=== PATIENT | male | born 1970 | race Asian ===

== ENCOUNTER 2019-01-17 15:11 | Emergency (ER) | payer MEDICARE, MEDICAID ==
[~2019-01-17] VITALS: Ht 170.2 cm; Wt 129.3 kg
[2019-01-17 15:12] VITALS: BP 115/78
[2019-01-17] MEDS ORDERED: LISINOPRIL2.5 MG ORAL (15:16)
--- NOTE | 2019-01-17 15:23 | Emergency Room Report ---
History of Present Illness General Chief Complaint: General Complaint Source: Patient, EMS Present Illness HPI 48-year-old male with a history of bipolar disorder on lithium, sertraline, clonazepam, as well as COPD not on home O2 and sleep apnea, sent from [address] [place] [address] because they were unable to arouse him for almost an hour today. This was called, and they reported patient was drowsy but arousable , he had no complaints, and now patient wants to go back to his facility before he misses dinner. He reports that he just been very strict sleepy and under a lot of stress after having an argument with significant other via the phone, and he did not want to be bothered so he was not responding to them. He reports that he is supposed to get a sleep apnea machine delivered to the facility, and since he has not gotten it he has not been sleeping well and has been more sleepy than usual as well as more irritable than usual especially after the argument with his significant other. He has no complaints at all, and just wants to go back to the facility. Allergies: Coded Allergies: No Known Allergies (Unverified , 01/17/19) Patient History Past Medical History: see triage record Reviewed Nursing Documentation: PMH: Agreed; PSxH: Agreed Nursing Documentation-PMH Hx Hypertension: Yes Hx Diabetes: Yes Review of Systems All Other Systems: negative except mentioned in HPI Physical Exam Vital Signs Date Time Temp Pulse Resp B/P (MAP) Pulse Ox O2 Delivery O2 Flow Rate FiO2 01/17/19 15:03 97.9 70 20 115/78 (90) 98 Room Air Sp02 EP Interpretation: reviewed, normal General Appearance: no apparent distress, alert, non-toxic Head: normocephalic Eyes: bilateral eye normal inspection, bilateral eye PERRL, bilateral eye EOMI ENT: normal ENT inspection, hearing grossly normal, normal pharynx, no angioedema, normal voice, moist mucus membranes Neck: normal inspection, full range of motion, supple, supple/symm/no masses Respiratory: chest non-tender, lungs clear, normal breath sounds, chest symmetrical, palpation of chest normal Cardiovascular #1: normal peripheral pulses, regular rate, rhythm, no edema Cardiovascular #2: 2+ radial (R), 2+ radial (L), 2+ dorsalis pedis (R), 2+ dorsalis pedis (L) Gastrointestinal: normal inspection, non tender, soft, no mass, no guarding, no rebound Rectal: deferred Genitourinary: normal inspection, no CVA tenderness Musculoskeletal: back normal, gait/station normal, normal range of motion, non- tender, no calf tenderness, Maria Fernanda's Sign negative Neurologic: alert, responsive, repair tech III-XII nml as tested, motor strength/tone normal, sensory intact, speech normal Psychiatric: judgement/insight normal, memory normal, mood/affect normal Skin: normal color, no rash, warm/dry, normal turgor Lymphatic: no adenopathy Medical Decision Making Diagnostic Impression: Primary Impression: Somnolence ER Course Patient is very well-appearing, has no complaints, is alert and oriented to person place situation time, ambulates with a stable gait, has a normal pupillary response, and has no complaints whatsoever. He is not at all drowsy here, and may be suffering from excessive daytime sleepiness due to his known history of obstructive sleep apnea and still awaiting his CPAP machine. However , I suspect today's episode was 2/2 patient being intentionally unarousable with the staff and not getting up on their request that he wake up, since he recollects the event and tells me he didn't want to get up. I have monitored him to ensure that there is no concern for acute opioid or benzodiazepine ingestion therefore I have monitored him without giving him any medications/ naloxone/any treatments of any kind, to ensure that he does not become acutely unresponsive. Patient's work-up is been unremarkable other than a leukocytosis with white blood cell count of 17,000, no bandemia, and patient's chest x-ray, urinalysis also unremarkable, do not suspect infection, patient is asked if he is on steroids, he reports no obvious oral steroid use but he is on Advair inhaled steroid, this may be the source of his leukocytosis. Case is medically cleared , I do not suspect any acute mental status changes, and he will be discharged. His monitoring period has been unremarkable, will dc back to transitional home. EKG Diagnostic Results EKG Time: 15:52 EP Interpretation: no stemi, qtc 459 Rate: normal Rhythm: NSR ST Segments: no acute changes ASA given to the pt in ED: No Chest X-Ray Diagnostic Results Chest X-Ray Diagnostic Results : Chest X-Ray Ordered: Yes # of Views/Limited/Complete: 1 View Indication: Other - AMS EP Interpretation: Yes Interpretation: no consolidation, no effusion, no pneumothorax, no acute cardiopulmonary disease Impression: No acute disease Electronically Signed by: Julio Garza MD Last Vital Signs Date Time Temp Pulse Resp B/P (MAP) Pulse Ox O2 Delivery O2 Flow Rate FiO2 01/17/19 15:03 97.9 70 20 115/78 (90) 98 Room Air Disposition: HOME, SELF-CARE Condition: Stable JULIO GARZA M.D Jan 17, 2019 15:23
[2019-01-17 16:07] LABS: BASOPHILS % (AUTO) 1.3 % (0.0-2.0); EOSINOPHILS % (AUTO) 4.8 % (0.0-3.0); HEMOGLOBIN 14.4 G/DL (14.2-18.0); LYMPHOCYTES % (AUTO) 30.1 % (20.0-45.0); MEAN CORPUSCULAR VOLUME 93 FL (80-99); MONOCYTES % (AUTO) 7.9 % (1.0-10.0); PLATELET COUNT 246 K/UL (150-450); RED BLOOD COUNT 4.39 M/UL (4.70-6.10); RED CELL DISTRIBUTION WIDTH 10.6 % (11.6-14.8); WHITE BLOOD COUNT 17.7 K/UL (4.8-10.8)
[2019-01-17 16:09] LABS: ANION GAP 7 mmol/L (5-15); BLOOD UREA NITROGEN 11 mg/dL (7-18); CALCIUM 8.6 MG/DL (8.5-10.1); CARBON DIOXIDE 28 MMOL/L (21-32); CHLORIDE 104 MMOL/L (98-107); CREATININE 1.2 MG/DL (0.55-1.30); POTASSIUM 4.3 MMOL/L (3.5-5.1); SODIUM 139 MMOL/L (136-145)
[2019-01-17 16:14] LABS: ALANINE AMINOTRANSFERASE 27 U/L (12-78); ALBUMIN 3.4 G/DL (3.4-5.0); ALKALINE PHOSPHATASE 66 U/L (46-116); ASPARTATE AMINO TRANSFERASE 14 U/L (15-37); BILIRUBIN,TOTAL 0.2 MG/DL (0.2-1.0)
[2019-01-17 16:48] LABS: APPEARANCE,URINE CLEAR; BILIRUBIN, URINE NEGATIVE (NEGATIVE); COLOR,URINE PALE YELLOW; GLUCOSE, URINE (UA) NEGATIVE (NEGATIVE); KETONES,URINE NEGATIVE (NEGATIVE); LEUKOCYTE ESTERASE ,URINE NEGATIVE (NEGATIVE); NITRITE,URINE NEGATIVE (NEGATIVE); PH,URINE 6 (4.5-8.0); PROTEIN,URINE NEGATIVE (NEGATIVE); UROBILINOGEN,URINE NORMAL MG/DL (0.0-1.0)
[2019-01-17 17:15] VITALS: BP 115/75
--- NOTE | 2019-01-18 17:46 | Diagnostic Imaging Report ---
Indication: Dyspnea Comparison: None A single view chest radiograph was obtained. Findings: Cardiomediastinal appearance is within normal limits for age. The lungs are clear. Pulmonary vascularity is appropriate. The diaphragmatic contour is smooth and costophrenic angles are sharp. No pleural effusions are identified. The bones are unremarkable. Impression: No acute findings
== END 2019-01-17 17:15 | disposition home or self-care (01) ==
LOC: EDBD 15:11 → EMR 15:33
DX: R40.0 Somnolence (principal); I10 Essential (primary) hypertension; E11.9 Type 2 diabetes mellitus without complications
CPT/HCPCS: 36415; 71045; 80053; 81003; 84484; 85025; 93005; 99283

== ENCOUNTER → 2019-02-04 | Emergency (ER) | payer MEDICARE, MEDICAID ==
[~2019-02-04] VITALS: Ht 170.2 cm; Wt 131.5 kg
[~2019-02-04] MED LIST: ADVAIR 500-501 EACH INH; AMOXICILLIN500 MG ORAL; BENADRYL25 M3 PO; CLONAZEPAM0.5 M1 PO; GABAPENTIN300 MG ORAL; LAMOTRIGINE200 M1 PO; LISINOPRIL2.5 MG ORAL; LISINOPRIL5 MG ORAL; LITHIUM CARBON300 M1 PO; NAPROXEN250 M1 PO; OLANZAPINE10 MG ORAL; PANTOPRAZOLE SO20 MG ORAL; SERTRALINE HCL100 MG PO; TYLENOL EXTRA500 MG ORAL
--- NOTE | 2019-02-04 14:21 | NUR ---
ED Nurse Note:pt. walked to ER due to coughing some mucus and URI, VSS, pt. is A/Ox4 ambulatory with steady gait
[2019-02-04 14:23] VITALS: BP 115/62
[2019-02-04 14:31] VITALS: BP 115/62
--- NOTE | 2019-02-04 14:32 | NUR ---
ER DISCHARGE NOTE: Patient is cleared to be discharged per ERMD, pt is aox4, on room air, with stable vital signs. pt was given dc and prescription instructions, pt was able to verbalize understanding, pt is able to ambulate with steady gait. pt took all belongings.
--- NOTE | 2019-02-04 15:56 | Emergency Room Report ---
History of Present Illness General Chief Complaint: General Complaint Source: Patient Present Illness HPI 48-year-old male presents ED for evaluation. Patient walked in complaining of cough and congestion for the last few days. Notes whitish phlegm denies fevers or chills. Notes history of COPD and sleep apnea. States he does normally have a CPAP machine at home. Admits to smoking. Denies chest pain or shortness of breath. Denies fevers or chills. No other aggravating relieving factors. Denies any other associated symptoms Allergies: Coded Allergies: No Known Allergies (Unverified , 01/17/19) Patient History Past Medical History: DM, HTN, COPD, psych hx Nursing Documentation-PMH Hx Hypertension: Yes Hx COPD: Yes Hx Diabetes: Yes Review of Systems All Other Systems: negative except mentioned in HPI Physical Exam Vital Signs Date Time Temp Pulse Resp B/P (MAP) Pulse Ox O2 Delivery O2 Flow Rate FiO2 02/04/19 14:08 98.1 93 20 106/70 (82) 91 Room Air Sp02 EP Interpretation: reviewed, normal General Appearance: no apparent distress, alert, GCS 15, non-toxic, obese Head: normocephalic, atraumatic Eyes: bilateral eye normal inspection, bilateral eye PERRL ENT: hearing grossly normal, normal pharynx, no angioedema, normal voice Neck: full range of motion, supple/symm/no masses Respiratory: chest non-tender, lungs clear, normal breath sounds, speaking full sentences Cardiovascular #1: regular rate, rhythm, no edema Cardiovascular #2: 2+ carotid (R), 2+ carotid (L), 2+ radial (R), 2+ radial (L) , 2+ dorsalis pedis (R), 2+ dorsalis pedis (L) Gastrointestinal: normal bowel sounds, non tender, soft, non-distended, no guarding, no rebound Rectal: deferred Genitourinary: normal inspection, no CVA tenderness Musculoskeletal: back normal, gait/station normal, normal range of motion, non- tender Neurologic: alert, oriented x3, responsive, motor strength/tone normal, sensory intact, speech normal Psychiatric: judgement/insight normal, memory normal, mood/affect normal, no suicidal/homicidal ideation Reflexes: 3+ bicep (R), 3+ bicep (L), 3+ tricep (R), 3+ tricep (L), 3+ knee (R) , 3+ knee (L) Skin: normal color, no rash, warm/dry, well hydrated Lymphatic: no adenopathy Medical Decision Making Diagnostic Impression: Primary Impression: COPD (chronic obstructive pulmonary disease) Qualified Codes: J44.9 - Chronic obstructive pulmonary disease, unspecified ER Course Hospital Course 48-year-old male presents ED complaining of cough. h/o COPD Differential diagnoses include: URI, pharyngitis, otitis media, asthma Clinical course Patient placed on stretcher. After initial history, physical exam reveals an obese male in no acute distress. Bilateral TM unremarkable. No pharyngeal erythema. No tonsillar exudates. No lymphadenopathy. lungs clear. abdomen soft. patient is afebrile, stable vitals. Nontoxic-appearing. Given history of COPD will discharge with antibiotics. States that he has his controller inhaler and rescue inhalers at home. Currently does not have a PMD. Will provide referrals Diagnosis - COPD Stable and discharged home with Rx amoxicillin. Instructed to followup with PMD. Return to ED if symptoms recur or worsen Last Vital Signs Date Time Temp Pulse Resp B/P (MAP) Pulse Ox O2 Delivery O2 Flow Rate FiO2 02/04/19 14:31 98.1 87 30 115/62 93 Room Air Status: improved Disposition: HOME, SELF-CARE Condition: Stable Scripts Amoxicillin* (AMOXIL*) 500 Mg Capsule 500 MG ORAL THREE TIMES A DAY, #21 CAP Prov: Librado Stover MD 02/04/19 Referrals: [facility] Patient Instructions: Acute Bronchitis, [id number] Librado Stover MD Feb 04, 2019 15:56
== END | disposition home or self-care (01) ==
LOC: EMR 14:10
DX: J44.9 Chronic obstructive pulmonary disease, unspecified (principal); E11.9 Type 2 diabetes mellitus without complications; I10 Essential (primary) hypertension
CPT/HCPCS: 99282

== ENCOUNTER 2019-02-07 11:35 | Emergency (ER) | payer MEDICARE, MEDICAID ==
[~2019-02-07] VITALS: Ht 170.2 cm; Wt 131.5 kg
--- NOTE | 2019-02-07 11:58 | NUR ---
ED Nurse Note: PT WALKED IN TO ER TODAY FROM HOME. AOX4. PT C/O SOB X LAST NIGHT. PT STATES HE USED HIS PRESCRIBED INHALERS LAST NIGHT WITHOUT RELIEF. PT ABLE TO SPEAK IN FULL SENTENCES. RR22, O2SAT 94% ON RA. PT DIAPHORETIC BUT NO SIGNS OF RESPIRATORY DISTRESS, RETRACTIONS, OR ACCESSORY MUSCLE USE NOTED.
[2019-02-07 11:59] VITALS: BP 113/79
[2019-02-07] MEDS ORDERED: Ipratropium 0.02% Inh Soln 2.5ml UD HHN ONE (12:00)
--- NOTE | 2019-02-07 12:00 | NUR ---
ED Nurse Note: RT CALLED FOR BREATHING TX.
[2019-02-07] MEDS: Albuterol ud Inhalation HHN SCH ×2 (12:11→12:37)
--- NOTE | 2019-02-07 12:12 | NUR ---
ED Nurse Note: RT AT BEDSIDE FOR BREATHING TX.
--- NOTE | 2019-02-07 12:19 | Emergency Room Report ---
History of Present Illness General Chief Complaint: Dyspnea/Respdistress Source: Patient Present Illness HPI Patient presents with complaints of shortness of breath Initially somewhat difficult to obtain history patient continues to fall asleep during the exam However after further coaching able to obtain some information patient reports history of COPD sleep apnea Noncompliance with his BiPAP machine denies any chest pain denies any recent travel denies any pleurisy denies any vomiting patient was recently here and reports he continued to worsen Allergies: Coded Allergies: No Known Allergies (Unverified , 01/17/19) Patient History Past Medical History: see triage record Pertinent Family History: none Reviewed Nursing Documentation: PMH: Agreed; PSxH: Agreed Nursing Documentation-PMH Hx Hypertension: Yes Hx COPD: Yes Hx Diabetes: Yes Hx Gastrointestinal Problems: No - back injury neck injury bi-lat knee injuries. History Of Psychiatric Problem: Yes - ptsd manic depressive Review of Systems All Other Systems: negative except mentioned in HPI Physical Exam Vital Signs Date Time Temp Pulse Resp B/P (MAP) Pulse Ox O2 Delivery O2 Flow Rate FiO2 02/07/19 11:38 98.8 89 24 119/74 (89) 84 Room Air Sp02 EP Interpretation: reviewed, abnormal - Which is low on 2 L nasal cannula patient saturating at 94% which is normal General Appearance: no apparent distress - However patient repeatedly falls asleep with loud snoring Head: normocephalic, atraumatic Eyes: bilateral eye PERRL, bilateral eye EOMI ENT: hearing grossly normal, normal pharynx, TMs + canals normal, uvula midline Neck: full range of motion, supple, no meningismus, no bony tend Respiratory: no respiratory distress, no retraction, no accessory muscle use, crackles - Laterally Cardiovascular #1: normal peripheral pulses, regular rate, rhythm, no edema, no gallop, no JVD, no murmur Gastrointestinal: normal bowel sounds, non tender, soft, no mass, no organomegaly, non-distended, no guarding, no hernia, no pulsatile mass, no rebound Genitourinary: no CVA tenderness Musculoskeletal: normal inspection Neurologic: oriented x3, responsive, returns supervisor III-XII nml as tested, motor strength/ tone normal, sensory intact Psychiatric: mood/affect normal Skin: normal color, no rash, warm/dry, palpation normal Lymphatic: normal inspection, no adenopathy Procedures Critical Care Time Critical Care Time 50 minutes for multiple re-evaluations critical presentation concern for respiratory arrest not including any procedural time Medical Decision Making Diagnostic Impression: Primary Impression: COPD (chronic obstructive pulmonary disease) ER Course Patient is a fairly complex patient with multiple differential to consideration including but not limited to cardiac cardiopulmonary and vascular emergencies Patient requiring BiPAP placement ABG also shows concerning findings patient doing significantly better after breathing treatment and BiPAP therapy I was told that the patient needed to return to his facility I did go to the bedside and discussed with the patient that his condition is Significant and requires hospitalization Leaving at this time can lead to worsening symptoms and possible patient is awake and appropriate medical decision-making capacity Upon returning I was told that the patient had eloped from the emergency room Labs Test 02/07/19 12:08 02/07/19 12:15 02/07/19 12:58 White Blood Count 15.4 K/UL (4.8-10.8) Red Blood Count 4.56 M/UL (4.70-6.10) Hemoglobin 15.0 G/DL (14.2-18.0) Hematocrit 45.2 % (42.0-52.0) Mean Corpuscular Volume 99 FL (80-99) Mean Corpuscular Hemoglobin 32.9 PG (27.0-31.0) Mean Corpuscular Hemoglobin Concent 33.2 G/DL (32.0-36.0) Red Cell Distribution Width 11.6 % (11.6-14.8) Platelet Count 268 K/UL (150-450) Mean Platelet Volume 7.5 FL (6.5-10.1) Neutrophils (%) (Auto) 53.7 % (45.0-75.0) Lymphocytes (%) (Auto) 29.6 % (20.0-45.0) Monocytes (%) (Auto) 9.5 % (1.0-10.0) Eosinophils (%) (Auto) 5.5 % (0.0-3.0) Basophils (%) (Auto) 1.7 % (0.0-2.0) Sodium Level 142 MMOL/L (136-145) Potassium Level 4.1 MMOL/L (3.5-5.1) Chloride Level 105 MMOL/L (98-107) Carbon Dioxide Level 31 MMOL/L (21-32) Anion Gap 6 mmol/L (5-15) Blood Urea Nitrogen 14 mg/dL (7-18) Creatinine 0.9 MG/DL (0.55-1.30) Estimat Glomerular Filtration Rate > 60 mL/min (>60) Glucose Level 103 MG/DL (74-106) Calcium Level 9.3 MG/DL (8.5-10.1) Total Bilirubin 0.2 MG/DL (0.2-1.0) Aspartate Amino Transf (AST/SGOT) 13 U/L (15-37) Alanine Aminotransferase (ALT/SGPT) 23 U/L (12-78) Alkaline Phosphatase 65 U/L (46-116) Total Creatine Kinase 147 U/L (26-308) Creatine Kinase MB 2.5 NG/ML (0.0-3.6) Creatine Kinase MB Relative Index 1.7 Troponin I 0.001 ng/mL (0.000-0.056) Pro-B-Type Natriuretic Peptide 95 pg/mL (0-125) Total Protein 7.1 G/DL (6.4-8.2) Albumin 3.3 G/DL (3.4-5.0) Globulin 3.8 g/dL Albumin/Globulin Ratio 0.9 (1.0-2.7) Lipase 124 U/L (73-393) Urine Opiates Screen Negative (NEGATIVE) Urine Barbiturates Screen Negative (NEGATIVE) Phencyclidine (PCP) Screen Negative (NEGATIVE) Urine Amphetamines Screen Negative (NEGATIVE) Urine Benzodiazepines Screen Negative (NEGATIVE) Urine Cocaine Screen Negative (NEGATIVE) Urine Marijuana (THC) Screen Negative (NEGATIVE) Arterial Blood pH 7.300 (7.350-7.450) Arterial Blood Partial Pressure CO2 65.0 mmHg (35.0-45.0) Arterial Blood Partial Pressure O2 63.3 mmHg (75.0-100.0) Arterial Blood HCO3 31.9 mmol/L (22.0-26.0) Arterial Blood Oxygen Saturation 91.6 % (95-100) Arterial Blood Base Excess 3.5 (-2-2) Yaron Test Positive Rhythm Strip Diag. Results EP Interpretation: yes Rate: 77 Rhythm: NSR, no PVC's, no ectopy Chest X-Ray Diagnostic Results Chest X-Ray Diagnostic Results : Chest X-Ray Ordered: Yes # of Views/Limited/Complete: 1 View Indication: Shortness of Breath EP Interpretation: Yes Interpretation: no consolidation, no effusion, no pneumothorax, other - Some congestion Impression: Other - Consider early CHF Electronically Signed by: Winston Verdin DO Last Vital Signs Date Time Temp Pulse Resp B/P (MAP) Pulse Ox O2 Delivery O2 Flow Rate FiO2 02/07/19 11:59 83 22 Room Air 02/07/19 11:59 98.6 113/79 94 Status: improved Disposition: ADMITTED INPATIENT Condition: Serious Referrals: NOT CHOSEN [facility]/,REFERRING (PCP) Winston Verdin DO Feb 07, 2019 12:19
--- NOTE | 2019-02-07 12:22 | NUR ---
ED Nurse Note: blood and urine sent to lab.
[2019-02-07 12:27] LABS: BASOPHILS % (AUTO) 1.7 % (0.0-2.0); EOSINOPHILS % (AUTO) 5.5 % (0.0-3.0); HEMATOCRIT 45.2 % (42.0-52.0); LYMPHOCYTES % (AUTO) 29.6 % (20.0-45.0); MEAN CORPUSCULAR VOLUME 99 FL (80-99); MONOCYTES % (AUTO) 9.5 % (1.0-10.0); NEUTROPHILS % (AUTO) 53.7 % (45.0-75.0); PLATELET COUNT 268 K/UL (150-450); RED BLOOD COUNT 4.56 M/UL (4.70-6.10); RED CELL DISTRIBUTION WIDTH 11.6 % (11.6-14.8); WHITE BLOOD COUNT 15.4 K/UL (4.8-10.8)
[2019-02-07 12:43] LABS: ANION GAP 6 mmol/L (5-15); BLOOD UREA NITROGEN 14 mg/dL (7-18); CALCIUM 9.3 MG/DL (8.5-10.1); CARBON DIOXIDE 31 MMOL/L (21-32); CHLORIDE 105 MMOL/L (98-107); CREATININE 0.9 MG/DL (0.55-1.30); POTASSIUM 4.1 MMOL/L (3.5-5.1); SODIUM 142 MMOL/L (136-145)
[2019-02-07 12:57] LABS: ALANINE AMINOTRANSFERASE 23 U/L (12-78); ALBUMIN 3.3 G/DL (3.4-5.0); ALBUMIN/GLOBULIN RATIO 0.9 (1.0-2.7); ALKALINE PHOSPHATASE 65 U/L (46-116); ASPARTATE AMINO TRANSFERASE 13 U/L (15-37); BILIRUBIN,TOTAL 0.2 MG/DL (0.2-1.0); CKMB 2.5 NG/ML (0.0-3.6); CREATINE KINASE 147 U/L (26-308)
--- NOTE | 2019-02-07 13:16 | NUR ---
ED Nurse Note: RT AT BEDSIDE FOR BIPAP.
--- NOTE | 2019-02-07 13:18 | NUR ---
ED Nurse Note: BIPAP SETTIN/8, FiO2 40%
--- NOTE | 2019-02-07 13:18 | NUR ---
Driss duarte in EDM - 02/07/19 at 1319 by ALISON ED Nurse Note: BIPAP SETTINGS: RATE: 16 EPAP: 8 FiO2: 40%
[2019-02-07 13:32] VITALS: BP 105/65
--- NOTE | 2019-02-07 13:46 | Diagnostic Imaging Report ---
Indication: Dyspnea Comparison: 01/17/2019 A single view chest radiograph was obtained. Findings: Lung volumes are low. Heart is enlarged. Bronchovascular markings are prominent. Interstitial edema is not excluded. Correlate clinically. IMPRESSION: Limited evaluation due to low lung volumes. Mild CHF not excluded. Correlate clinically
--- NOTE | 2019-02-07 14:08 | NUR ---
ED Nurse Note: PER DR DIAZ, D/C BIPAP. RT AT BEDSIDE TO D/C BIPAP. PT PLACED ON 5L O2 VIA SIMPLE MASK.
--- NOTE | 2019-02-07 14:25 | NUR ---
ED Nurse Note: PT INFORMED THAT THE PLAN IS FOR HIM TO BE ADMITTED TO THE HOSPITAL. PT DOES NOT WISH TO STAY IN THE HOSPITAL. PT REMOVED SIMPLE MASK. PT ASKED TO REMAIN IN BED UNTIL SPEAKING WITH DR DIAZ. DR DIAZ NOTIFIED.
--- NOTE | 2019-02-07 14:26 | NUR ---
ED Nurse Note: PT O2 DROPPED TO 1L. O2SAT 94% ON 1L VIA SIMPLE MASK.
[2019-02-07] MEDS ORDERED: Albuterol/Ipratropium 3ml neb HHN PRN (14:45)
[2019-02-07] MEDS ORDERED: Promethazine/Codeine 5ml UD ORAL PRN (14:45)
[2019-02-07] MEDS ORDERED: Morphine Sulfate 2mg/ml Inj(IV/IM USE ONLY) IVP PRN (14:45)
[2019-02-07] MEDS ORDERED: Nitroglycerin Subl 0.4mg tab SL PRN (14:45)
[2019-02-07] MEDS ORDERED: LORazepam Inj 2mg/ml 1ml IV PRN (14:45)
--- NOTE | 2019-02-07 14:49 | NUR ---
ED Nurse Note: PT VERBALIZES AGAIN THAT HE CANNOT BE ADMITTED TO THE HOSPITAL. ATTEMPTS MADE BY PRIMARY RN AND SECURITY TO KEEP PT IN ER BED BUT PT REFUSED AND ELOPED. IV AND ID [id number] REMOVED FROM PT PRIOR TO ELOPMENT DUE TO FORESEEN DANGER OF ELOPEMENT. PT WALKED OUT OF ER WITH STEADY GAIT, AOX4, AND WITH NO SIGNS OF RESPIRATORY DISTRESS, ACCESORY MUSCLE USE, OR RETRACTIONS AND ALL BELONGINGS. DR EMILY CHRISTINE.
[2019-02-07 14:53] VITALS: BP 116/68
[2019-02-07] MEDS ORDERED: Solu-MEDROL 125mg Inj IV SCH (18:00)
[2019-02-07] MEDS ORDERED: Heparin 5000 units/ml inj SUBQ SCH (21:00)
[2019-02-07] MEDS ORDERED: Theophylline ER 100mg ORAL SCH (21:00)
[2019-02-07] MEDS ORDERED: Piperacillin/Tazobactam 2.25 GM in D5W 55 ML IV SCH (22:00)
[2019-02-08] MEDS ORDERED: OLANZapine 10mg tab ORAL SCH (09:00)
[2019-02-08] MEDS ORDERED: Sertraline 100mg tab ORAL SCH (09:00)
[2019-02-08] MEDS ORDERED: ADVAIR 500-501 EACH INH (09:24)
[2019-02-08] MEDS ORDERED: PREDNISONE20 MG ORAL (09:24)
--- NOTE | 2019-02-08 11:42 | Cardiology Report ---
APPROVED REPORT EKG Measurement Heart [id number] Normal sinus rhythm Normal ECG
== END 2019-02-07 14:50 | disposition left against medical advice (07) ==
LOC: EMR 12:05 → CANBEDREQ 14:54
DX: J44.9 Chronic obstructive pulmonary disease, unspecified (principal); E11.9 Type 2 diabetes mellitus without complications; F32.9 Major depressive disorder, single episode, unspecified; G47.30 Sleep apnea, unspecified
CPT/HCPCS: 36415; 36600; 71045; 80053; 80307; 82550; 82553; 82803; 83690; 83880; 84484; 85025; 93005; 94640; 99284

== ENCOUNTER 2019-02-07 15:35 | Inpatient (IN) | payer MEDICARE, MEDICAID ==
[~2019-02-07] VITALS: Ht 170.2 cm; Wt 131.5 kg
--- NOTE | 2019-02-07 15:43 | NUR ---
ED Nurse Note: PT WALKED IN TO ER TODAY FROM HOME. AOX4. PT ELOPED FROM ER AT 1449 BUT RETURNS NOW WISHING TO BE ADMITTED. PT RETURNS WITH SAME C/O SOB X LAST NIGHT. PT STATES HE USED HIS PRESCRIBED INHALERS LAST NIGHT WITHOUT RELIEF. PT ABLE TO SPEAK IN FULL SENTENCES. RR20, O2SAT 90% ON RA. NO SIGNS OF RESPIRATORY DISTRESS, RETRACTIONS, OR ACCESSORY MUSCLE USE NOTED. PT ABLE TO SPEAK IN FULL SENTENCES.
[2019-02-07 15:58] VITALS: BP 115/68
--- NOTE | 2019-02-07 16:44 | NUR ---
ED Nurse Note: CALLED TELE UNIT FOR PT REPORT. ASUNCION, CHARGE NURSE HAS NOT ASSIGNED RN TO PT YET. RN WILL CALL BACK ONCE ASSIGNED.
[2019-02-07] MEDS ORDERED: Solu-MEDROL 125mg Inj IVP ONE (16:45)
--- NOTE | 2019-02-07 17:24 | NUR ---
ED Nurse Note: TELE UNIT CALLED AGAIN. RN STILL NOT READY.
--- NOTE | 2019-02-07 17:35 | NUR ---
ED Nurse Note: TELE UNIT CALLED FOR PT REPORT. REPORT GIVEN TO ASUNCION CHARGE NURSE. PT TAKEN UP TO TELE UNIT VIA GURNEY ON KEG FILLER AND ALL BELONGINGS ACCOMPANIED BY PRIMARY RN AND EMT.
--- NOTE | 2019-02-07 18:05 | NUR ---
NURSE NOTES: Report received from AJITH Schaffer. Patient came in from ER via gurney. Walked 3 steps to a bed with supervision and minimal assist. AOx3. VS stable with O2 sat 91 on 2L NC. IV running Mg, with 10min to finish running, site intact. Belongings checked with Pt and ER nurse, signed and filed. monitoring engineer applied. Pt SR at this time. Hospital protocols discussed. Oriented to room. Bed on lowest position, side rails upx2, brakes engaged. Call light within easy reach.
[2019-02-07 18:10] VITALS: BP 123/68
--- NOTE | 2019-02-07 18:54 | Emergency Room Report ---
History of Present Illness General Chief Complaint: Dyspnea/Respdistress Source: Patient Present Illness Allergies: Coded Allergies: No Known Allergies (Unverified , 01/17/19) Nursing Documentation-[facility] Past Medical History: No History, Except For Hx Hypertension: Yes Hx COPD: Yes Hx Diabetes: Yes Hx Gastrointestinal Problems: No - back injury neck injury bi-lat knee injuries. Physical Exam Vital Signs Date Time Temp Pulse Resp B/P (MAP) Pulse Ox O2 Delivery O2 Flow Rate FiO2 02/07/19 15:38 98.1 91 22 124/80 (95) 88 Room Air 02/07/19 17:34 1.0 Medical Decision Making Diagnostic Impression: Primary Impression: copd ER Course Please note that the patient had just left AGAINST MEDICAL ADVICE Reported that he had stepped outside and smoked a cigarette therefore felt better and had decided to return to the hospital Further evaluation and examination is not performed and patient continues with his request for admission to the hospital Rhythm Strip Diag. Results EP Interpretation: yes Rate: 77 Rhythm: NSR, no PVC's, no ectopy Last Vital Signs Date Time Temp Pulse Resp B/P (MAP) Pulse Ox O2 Delivery O2 Flow Rate FiO2 02/07/19 18:10 97.0 68 20 123/68 (86) 91 02/07/19 17:34 Room Air 1.0 Status: improved Disposition: ADMITTED INPATIENT Condition: Serious Referrals: [facility],REFERRING (PCP) Winston Verdin DO Feb 07, 2019 18:54
--- NOTE | 2019-02-07 19:40 | NUR ---
NURSE NOTES: received report from Lyndsey CANSECO, pt. in bed asleep- alert to name, place and sate- A/O x's3- able to make needs known, revenue liaison on, no signs or symptoms of acute cardiac or respiratory distress noted, pt. is a transfer from ER per endorsement, pt. teaching done and pt. oriented to room, pt. made aware to ask for assistance, pt. is on 2L NC - sating at 91%- will call DR. Levy to see if pt. needs to continue BIPAP- as pt. was on BIPAP in ER, pt. has urinal at bedside and within easy reach, bed alarm on, side rails up x's3 and safety brakes engaged, pt. has urinal at bedside and within easy reach-aware to ask for assistance, pt. appears to be in do distress, full body assessment done- skin intact, Rt. hand 20G- IV Intact and patent, safety measures continued, will continue with plan of care. Addendum: 02/07/19 at 2304 by DINORA CHOI RN RN side rails padded for seizure precautions.
--- NOTE | 2019-02-07 19:40 | NUR ---
HAND-OFF: Report given to AJITH Allen. Patient in stable condition. O2 sat 92.
[2019-02-07 20:00] VITALS: BP 122/69
[2019-02-07] MEDS ORDERED: Acetaminophen 500mg (ES) tab ORAL PRN (20:15)
--- NOTE | 2019-02-07 20:15 | NUR ---
NURSE NOTES: Received orders from DR. Levy- orders carried out- orders to continue only some of the homes meds- discussed with doctor and orders repeated- Respiratory therapist notified to put pt. on BIPAP 27/12 FIO2 @28%. will continue to monitor pt. and with plan of care. Addendum: 02/07/19 at 2235 by DINORA CHOI RN RN ALL HOME MEDS DISCUSSED WITH DOCTOR AND WHICH ONES TO CONTINUE AND WHICH ONES TO DISCONTINUE.
[2019-02-07] MEDS ORDERED: Azithromycin 500 MG in D5W 275 ML IV ONE (21:00)
[2019-02-07] MEDS: Solu-MEDROL 40mg Inj IVP SCH (21:12)
--- NOTE | 2019-02-07 21:30 | NUR ---
NURSE NOTES: Spoke to Alana-As some home meds are not showing up in eMAR- per Alana she did receive orders for all home medications-
--- NOTE | 2019-02-07 22:20 | NUR ---
NURSE NOTES: received report from Lyndsey CANSECO, pt. in bed asleep- alert to name, place and sate- A/O x's3- able to make needs known, classroom monitor on, no signs or symptoms of acute cardiac or respiratory distress noted, pt. is a transfer from ER per endorsement, pt. teaching done and pt. oriented to room, pt. made aware to ask for assistance, pt. is on 2L NC - sating at 91%- will call DR. Levy to see if pt. needs to continue BIPAP- as pt. was on BIPAP in ER, pt. has urinal at bedside and within easy reach, bed alarm on, side rails up x's3 and safety brakes engaged, pt. has urinal at bedside and within easy reach-aware to ask for assistance, pt. appears to be in do distress, full body assessment done- skin intact, Rt. hand 20G- IV Intact and patent, safety measures continued, will continue with plan of care. Addendum: 02/07/19 at 2227 by DINORA CHOI RN RN correction to message above report received at 1940.
[2019-02-07] MEDS ORDERED: cefTRIAXone 1 GM in D5W 55 ML IVPB SCH (23:00)
[2019-02-07] MEDS: Albuterol/Ipratropium 3ml neb HHN SCH (23:06)
[2019-02-08] VITALS: BP 146/72
--- NOTE | 2019-02-08 02:54 | NUR ---
HAND-OFF: Report given to Patt RN- pt, reamins stable and no sigsn of distress noted- aware to f/u on four medications that pharmacy has not updated in eMAR Pantoprazole, Benadryl, lamotrigine and lithium carbonate- aware that Alana at pharmacy has been notified.
--- NOTE | 2019-02-08 02:54 | NUR ---
NURSE NOTES: Received report from Tiffany RN, Pt. in bed asleep on bipap- Per report is alert A/O x 3, paint factory worker on, no signs or symptoms of acute cardiac or respiratory distress noted, on BIPAP 16/5, fiO2 28% has urinal at bedside and within easy reach, bed alarm on, side rails up x 3 bed locked in lowest position, pt. has urinal at bedside and within easy reach-aware to ask for assistance, pt. appears to be in no distress, IV Rt. hand 20G- IV Intact and patent TKO, will continue with plan of care.
[2019-02-08] MEDS: Albuterol/Ipratropium 3ml neb HHN SCH ×4 (02:57→14:08)
[2019-02-08 04:00] VITALS: BP 132/79
[2019-02-08] MEDS: Solu-MEDROL 40mg Inj IVP SCH ×2 (05:08→14:00)
--- NOTE | 2019-02-08 07:27 | NUR ---
HAND-OFF: Report given to AJITH Lunsford.
--- NOTE | 2019-02-08 07:30 | NUR ---
NURSE NOTES: Pt received from Fran RN currently asleep in bed with no acute s/s of distress noted. On Bipap, breathing even and unlabored. IV site asymptomatic and patent on R hand 20g, saline lock. Bed in lowest position, HOB elevated. Call light and belongings within reach.
[2019-02-08 08:00] VITALS: BP 140/70
[2019-02-08 08:47] LABS: HEMOGLOBIN 15.8 G/DL (14.2-18.0); MEAN CORPUSCULAR VOLUME 99 FL (80-99); PLATELET COUNT 277 K/UL (150-450); RED BLOOD COUNT 4.74 M/UL (4.70-6.10); RED CELL DISTRIBUTION WIDTH 11.6 % (11.6-14.8); WHITE BLOOD COUNT 19.2 K/UL (4.8-10.8)
--- NOTE | 2019-02-08 08:55 | NUR ---
NURSE NOTES: Dr. Levy assessed pt at beside, with RN. Per Dr. Levy, pt will be discharged with home meds along with prednisone and fluticasone for resp management. RN called and faxed over prescription to [facility] pharmacy, will be ready at 1200.
[2019-02-08] MEDS ORDERED: Sertraline 100mg tab ORAL SCH (09:00)
[2019-02-08] MEDS ORDERED: Lisinopril 2.5mg tab ORAL SCH (09:00)
--- NOTE | 2019-02-08 09:15 | NUR ---
NURSE NOTES: Per Steam Engineer Vianney, spoke with Mulu from [facility]. Pt will be picked up from [facility] once ready for discharge. Pls call [phone] to arrange transport.
[2019-02-08 09:18] LABS: ALANINE AMINOTRANSFERASE 21 U/L (12-78); ALBUMIN 3.6 G/DL (3.4-5.0); ALKALINE PHOSPHATASE 65 U/L (46-116); ANION GAP 8 mmol/L (5-15); ASPARTATE AMINO TRANSFERASE 12 U/L (15-37); BILIRUBIN,TOTAL 0.3 MG/DL (0.2-1.0); BLOOD UREA NITROGEN 14 mg/dL (7-18); CARBON DIOXIDE 30 MMOL/L (21-32); CHLORIDE 100 MMOL/L (98-107); CREATININE 0.9 MG/DL (0.55-1.30); POTASSIUM 4.4 MMOL/L (3.5-5.1); SODIUM 138 MMOL/L (136-145)
--- NOTE | 2019-02-08 09:21 | NUR ---
Social Work This Sw received a consult due to patient has been staying with [facility] @ [address] [place] (phone [phone]), wanting to leave AMA due to concerned he will loose his bed there. Dr Jensen cleared patient for discharge today. This Sw spoke with Floodplain Manager, Mulu who explained they will accept patient back there and will provide transportation. Nursing informed to contact Mulu when ready for discharge.
[2019-02-08] MEDS ORDERED: PREDNISONE20 MG ORAL (09:24)
[2019-02-08] MEDS ORDERED: ADVAIR 500-501 EACH INH (09:24)
--- NOTE | 2019-02-08 09:53 | NUR ---
CASE MANAGEMENT:REVIEW 48 YR OLD MALE PRESENTED TO ER CC: SOB SI: COPD EXACERBATION 98.0 91 22 124/80 88% ON RA WBC+19.2 GLUCOSE+128 IS: PLACED ON BIPAP IV SOLUMEDROL IV MAG SULFATE IV AZITHROMYCIN : TO TELEMETRY INTERQUAL CRITERIA MET
--- NOTE | 2019-02-08 11:55 | NUR ---
NURSE NOTES: Prescription meds delivered and available to patient upon discharge. RN called Hardwick from [facility] to arrange transport. 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
[2019-02-08 12:00] VITALS: BP 137/79
[2019-02-08] MEDS ORDERED: Tubing IV Secondary IV ONE (15:18)
[2019-02-08] MEDS ORDERED: NS 275ml ONE (15:18)
--- NOTE | 2019-02-08 15:19 | NUR ---
NURSE NOTES: Pt picked up by Kulwant from [facility] to go to [facility] program in stable condition, ambulatory. IV site d/clifford and wristband removed as per protocol. No wounds noted upon discharge. On room air, saturating at 95%. Educated pt on discharge and medication information, pt verbalized understanding. Per pt, he will go to [facility] upon discharge [address] [place], [place] to continue his program. Homeless package signed and placed in chart.
--- NOTE | 2019-02-08 15:45 | History and Physical Report ---
DATE OF ADMISSION: 02/07/2019 CHIEF COMPLAINT: Short of breath. HISTORY OF PRESENT ILLNESS: The patient denies any symptoms. He was sent from a homeless center where he is currently housed because of cough. He is known to have chronic obstructive pulmonary disease and was using his Combivent inhaler excessively. He was seen in the emergency department and left AMA to smoke and then he came back and was admitted. He had respiratory acidosis due to chronic obstructive pulmonary disease and was on BiPAP overnight. Today, he is feeling better and wants to go home. PAST MEDICAL HISTORY: Chronic obstructive pulmonary disease, heavy smoker, hypertension, diabetes, neck and back injuries, PTSD, bipolar disorder, morbid obesity, and sleep apnea, not compliant with CPAP. MEDICATIONS: Tylenol, Benadryl, Advair, gabapentin, lamotrigine, lisinopril, lithium, pantoprazole, and sertraline. ALLERGIES: None. REVIEW OF SYSTEMS: Otherwise unremarkable. PHYSICAL EXAMINATION: GENERAL: The patient is morbidly obese. VITAL SIGNS: Stable. His room air saturation is now 93%. Earlier, the room air saturation was 88% on admission. SKIN: Warm and dry with multiple tattoos. HEENT: The head is normocephalic. NECK: He has no jugular vein distention. CHEST: Decreased air entry with no wheezing or rales. CARDIAC: Rhythm is regular. ABDOMEN: Soft, obese, and nontender. Liver and spleen are not enlarged. EXTREMITIES: No clubbing, cyanosis, or edema. LABORATORY STUDIES: Show white count was 19,200. Chemistry showed normal findings. Blood sugar was 103. Troponin negative. Albumin 3.3. Toxicology was negative. Urinalysis was negative. The chest x-ray showed low lung volumes. IMPRESSION: 1. Acute on chronic respiratory failure. 2. Chronic obstructive pulmonary disease. 3. Sleep apnea. Noncompliant with treatment. 4. Hypertension. 5. PTSD. 6. Bipolar disorder. 7. Diabetes by history. PLAN: The patient insists on leaving. His condition is satisfactory for discharge. We will discharge him on prednisone for one week with outpatient follow up. There is no sign of active infection and I believe the leukocytosis was due to stress reaction. Salomon Levy M.D. DR: FARIDEH JOB#: [id number] CC: Salomon Levy M.D.; Fax#: [phone]
--- NOTE | 2019-02-08 16:09 | NUR ---
*-* INSURANCE *-* ALL CLINICALS AND REVIEWS HAVE BEEN FAXED TO: IPA: [facility] P [phone] F:[phone] (SEND CLINICALS) ALL CLINICALS HAVE BEEN FAXED TO:
[2019-02-08] MEDS ORDERED: Azithromycin 250 MG in D5W 275 ML IV SCH (21:00)
--- NOTE | 2019-02-09 20:20 | Discharge Summary ---
Discharge Summary Discharge Summary _ DATE OF ADMISSION: 02/07/2019 DATE OF DISCHARGE: 02/08/2019 DISCHARGED BY: Dr. Levy REASON FOR ADMISSION: 48 years old male with past medical history of COPD, heavy smoker, hypertension , diabetes mellitus ( per patient's ), PTSD, bipolar disorder, morbid obesity, obstructive sleep apnea, noncompliant with CPAP, neck and back injuries, was sent from [facility], where he is currently housing, for evaluation due to cough. He was seen in the emergency department and left AGAINST MEDICAL ADVICE to smoke. Patient subsequently came back was admitted due to COPD exacerbation and acute respiratory failure. HOSPITAL COURSE: Patient admitted to telemetry floor. Patient was placed on BiPAP overnight. In the morning patient was able to be weaned from the BiPAP. Supplemental oxygen provided as needed to keep pulse oximetry above 90%. Pulse oximetry was stable on room air prior to discharge. Pulmonary toilet provided with nebulizing therapy around the clock and as needed. Patient was started on intravenous steroids and empiric antibiotics. CXR revealed no acute cardiopulmonary pathology. Patient was counseled on smoking cessation Patient declined nicotine patch. Home medication resumed. GI prophylaxis provided. grain elevator worker met with patient. Patient insisted on leaving due to fear that he will lose his bed at [facility].. grain elevator worker spoke with sales program manager, who explained that they will accept patient back and provide transportation. Patient clinically stabilized. He was discharged on oral prednisone for 1 week with outpatient follow-up. There was no signs of active infection. Leukocytosis present on admission, was likely due to stress reaction. Patient was picked up by transportation, provided by [facility]. Due to rapid and unexpected improvement in patient condition, patient was discharged in 1 day. FINAL DIAGNOSES: Acute on chronic respiratory failure COPD Obstructive sleep apnea, noncompliant with treatment Hypertension PTSD Bipolar disorder Diabetes mellitus by history DISCHARGE MEDICATIONS: See Medication Reconciliation list. DISCHARGE INSTRUCTIONS: Patient was discharged to [facility]. Follow-up with primary care provider as outpatient I have been assigned to dictate discharge summary for this account. I was not involved in the patient's management. Bridgette Velazquez NP Feb 09, 2019 20:20
== END 2019-02-08 15:19 | disposition short-term general hospital (02) | DRG 189 ==
LOC: EMR 15:48 → 2E 16:15 → EDBEDREQ 16:52
PROC: 5A09357 Assistance with Respiratory Ventilation, Less than 24 Consecutive Hours, Continuous Positive Airway Pressure (ICD-10-PCS; principal; 2019-02-07)
DX: J96.20 Acute and chronic respiratory failure, unspecified whether with hypoxia or hypercapnia (principal); J44.9 Chronic obstructive pulmonary disease, unspecified; F31.9 Bipolar disorder, unspecified; E66.01 Morbid (severe) obesity due to excess calories; Z91.19 Patient's noncompliance with other medical treatment and regimen; F43.10 Post-traumatic stress disorder, unspecified; E11.9 Type 2 diabetes mellitus without complications; Z87.891 Personal history of nicotine dependence; G47.33 Obstructive sleep apnea (adult) (pediatric)
CPT/HCPCS: 36415; 80053; 84443; 85007; 85025; 93970; 94640; 94660; 94664; 96365; 96366; 96367; 96375; 99285; J7620